=== PATIENT | female | born 1935 | race Caucasian/White ===

== ENCOUNTER → 2016-04-27 | Outpatient (CLI) | payer MEDICARE, BC | END | disposition home or self-care (01) | LOC: HKI 10:00 | PROVIDERS: ATTEND Orthopaedic Surgery | DX: S32.511A Fracture of superior rim of right pubis, initial encounter for closed fracture (principal); S32.591A Other specified fracture of right pubis, initial encounter for closed fracture; W01.0XXA Fall on same level from slipping, tripping and stumbling without subsequent striking against object, initial encounter; M25.551 Pain in right hip ==

== ENCOUNTER → 2016-05-25 | Outpatient (CLI) | payer MEDICARE, BC | END | disposition home or self-care (01) | LOC: HKI 09:55 | PROVIDERS: ATTEND Orthopaedic Surgery | DX: M25.551 Pain in right hip (principal); S32.511A Fracture of superior rim of right pubis, initial encounter for closed fracture ==

== ENCOUNTER → 2016-07-02 | Outpatient (CLI) | payer BC, MEDICARE ==
--- NOTE | 2016-07-02 15:23 | RADRPT ---
PROCEDURE: XR pelvis. CLINICAL INDICATION: Hip pain TECHNIQUE: AP pelvis performed COMPARISON: No prior studies are available for comparison. FINDINGS: There is moderate bilateral hip osteoarthrosis. This is associated with joint space narrowing, subch ondral sclerosis and osteophytosis. There is diffuse osteopenia. There is an old healed left infer ior pubic ramus fracture. No acute fractures or osseous lesions are identified. The soft tissues a re unremarkable. IMPRESSION: Diffuse osteopenia Moderate bilateral hip osteoarthrosis. RPTAT: [facility] .Osei Boucher MD, MD Date Time Electronically viewed and signed by .Osei Boucher MD, on 07/02/2016 15:23 .B/
== END | disposition home or self-care (01) ==
LOC: HKI 14:59
PROVIDERS: ATTEND Orthopaedic Surgery
DX: M25.551 Pain in right hip (principal); S32.511A Fracture of superior rim of right pubis, initial encounter for closed fracture; W01.0XXA Fall on same level from slipping, tripping and stumbling without subsequent striking against object, initial encounter
CPT/HCPCS: 72170

== ENCOUNTER → 2016-09-10 | Outpatient (CLI) | payer BC, MEDICARE ==
--- NOTE | 2016-09-10 19:21 | RADRPT ---
PROCEDURE: XR Pelvis. CLINICAL INDICATION: Pelvic pain. TECHNIQUE: Single AP view of the pelvis. COMPARISON: 07/02/2016. FINDINGS: There is moderate bilateral hip osteoarthrosis. This is associated with joint space narrowing, subch ondral sclerosis and osteophytosis. There is diffuse osteopenia. There is an old healed left inferio r pubic ramus fracture. No acute fractures or osseous lesions are identified. The soft tissues are u nremarkable. IMPRESSION: 1. No change from 07/02/2016. RPTAT: QQ .Binh Alexandra MD, MD Date Time Electronically viewed and signed by .Binh Alexandra MD, MD on 09/10/2016 19:21 .R/
== END | disposition home or self-care (01) ==
LOC: HKI 10:42
PROVIDERS: ATTEND Orthopaedic Surgery
DX: M16.0 Bilateral primary osteoarthritis of hip (principal)
CPT/HCPCS: 72170